=== PATIENT | male | born 1990 ===

== ENCOUNTER 2017-08-10 22:29 | Emergency (ER) | payer BC ==
[2017-08-10] MEDS ORDERED: methylPREDNISolone Sodium Succinate 125 MG/2 ML SDV IVPUSH ONE (22:31)
[2017-08-10] MEDS ORDERED: Albuterol/Ipratropium 3.0-0.5 MG/3 ML Neb Soln NEB ONE (22:31)
[2017-08-10] MEDS ORDERED: Sodium Chloride 0.9% 1,000 ML IV ONE (22:32)
--- NOTE | 2017-08-10 22:32 | EDM.PDOC ---
ED HPI GENERAL MEDICAL PROBLEM - General Chief Complaint: Respiratory Problem Stated Complaint: CHEST PAIN Time Seen by Provider: 08/10/17 22:32 Source of Information: Reports: Patient - History of Present Illness INITIAL COMMENTS - FREE TEXT/NARRATIVE: HISTORY AND PHYSICAL: History of present illness: [Patient presents with chest tightness and shortness breath has been intermittent over the last 2 weeks he is a smoker smoking 5 cigarettes per day denies any allergy history no new exposures On arrival he is in no distress is able to speak clearly indicates he does have somewhat of a sore throat he has diminished breath sounds on arrival no fever nausea vomiting chills sweats ] Review of systems: As per history of present illness and below otherwise all systems reviewed and negative. Past medical history: As per history of present illness and as reviewed below otherwise noncontributory. Surgical history: As per history of present illness and as reviewed below otherwise noncontributory. Social history: No reported history of drug or alcohol abuse. Family history: As per history of present illness and as reviewed below otherwise noncontributory. Physical exam: HEENT: Atraumatic, normocephalic, pupils reactive, negative for conjunctival pallor or scleral icterus, mucous membranes moist, throat clear, neck supple, nontender, trachea midline. Lungs: Clear to auscultation, breath sounds equal bilaterally, chest nontender. Post DuoNeb and Solu-Medrol Heart: S1S2, regular, negative for clicks, rubs, or JVD. Abdomen: Soft, nondistended, nontender. Negative for masses or hepatosplenomegaly. Negative for costovertebral tenderness. Pelvis: Stable nontender. Genitourinary: Deferred. Rectal: Deferred. Extremities: Atraumatic, negative for cords or calf pain. Neurovascular unremarkable. Neuro: Awake, alert, oriented. Cranial nerves II through XII unremarkable. Cerebellum unremarkable. Motor and sensory unremarkable throughout. Exam nonfocal. Diagnostics: [Chest 1 view EKG ] Therapeutics: [Liter normal saline bolus Solu-Medrol 125 mg IV DuoNeb Medrol Dosepak Z-López ] Impression: [ shortness of breath-resolved Bronchitis ] Definitive disposition and diagnosis as appropriate pending reevaluation and review of above. Left Chest Pain Score (Numeric/FACES): 2 - Related Data Allergies Allergy/AdvReac Type Severity Reaction Status Date / Time No Known Allergies Allergy Verified 08/10/17 23:03 Home Meds: Home Meds . [No Known Home Meds] 08/10/17 [History] ED ROS GENERAL - Review of Systems Review Of Systems: See Below ED EXAM, GENERAL - Physical Exam Exam: See Below Course - Vital Signs Last Recorded V/S: Last Vital Signs Temp 97 F 08/10/17 22:35 Pulse 74 08/10/17 23:38 Resp 16 08/10/17 22:35 BP 132/70 08/10/17 23:38 Pulse Ox 98 08/10/17 23:38 - Orders/Labs/Meds Orders: Active Orders 24 hr Category Date Time Status EKG Documentation Completion [RC] STAT Care 08/10/17 22:31 Active RT Aerosol Therapy [RC] ASDIRECTED Care 08/10/17 22:32 Active Chest 1V Frontal [CR] Stat Exams 08/10/17 22:31 Taken CULTURE STREP A CONFIRMATION [RM] Stat Lab 08/10/17 23:00 Results STREP SCRN A RAPID W CULT CONF [RM] Stat Lab 08/10/17 23:00 Ordered Labs: Laboratory Tests 08/10/17 08/10/17 Range/Units 23:00 23:00 WBC 7.50 (4.0-11.0) K/uL RBC 5.25 (4.50-5.90) M/uL Hgb 15.9 (13.0-17.0) g/dL Hct 43.6 (38.0-50.0) % MCV 83.0 (80.0-98.0) fL MCH 30.3 (27.0-32.0) pg MCHC 36.5 (31.0-37.0) g/dL RDW Std Deviation 36.8 (28.0-62.0) fl RDW Coeff of Aidee 12 (11.0-15.0) % Plt Count 196 (150-400) K/uL MPV 10.40 (7.40-12.00) fL Neut % (Auto) 45.1 L (48.0-80.0) % Lymph % (Auto) 46.5 H (16.0-40.0) % [place] % (Auto) 6.7 (0.0-15.0) % Eos % (Auto) 1.3 (0.0-7.0) % Baso % (Auto) 0.4 (0.0-1.5) % Neut # (Auto) 3.4 (1.4-5.7) K/uL Lymph # (Auto) 3.5 H (0.6-2.4) K/uL [place] # (Auto) 0.5 (0.0-0.8) K/uL Eos # (Auto) 0.1 (0.0-0.7) K/uL Baso # (Auto) 0.0 (0.0-0.1) K/uL Nucleated RBC % 0.0 /100WBC Nucleated RBCs # 0 K/uL Sodium 143 (136-148) mmol/L Potassium 3.3 L (3.5-5.1) mmol/L Chloride 106 (98-107) mmol/L Carbon Dioxide 27.0 (21.0-32.0) mmol/L BUN 17 (7.0-18.0) mg/dL Creatinine 1.1 (0.8-1.3) mg/dL Est Cr Clr Drug Dosing 115.20 mL/min Estimated GFR (MDRD) > 60.0 ml/min Glucose 119 H (74-106) mg/dL Calcium 8.2 L (8.5-10.1) mg/dL Total Bilirubin 0.4 (0.2-1.0) mg/dL AST 21 (15-37) IU/L ALT 32 (14-63) IU/L Alkaline Phosphatase 95 (46-116) U/L Troponin I < 0.050 (0.000-0.056) ng/mL Total Protein 7.0 (6.4-8.2) g/dL Albumin 3.7 (3.4-5.0) g/dL Globulin 3.3 (2.0-3.5) g/dL Albumin/Globulin Ratio 1.1 L (1.3-2.8) Meds: Medications Discontinued Medications Generic Name Dose Route Start Last Admin Trade Name Freq PRN Reason Stop Dose Admin Albuterol/Ipratropium 3 ml 08/10/17 22:31 08/10/17 22:54 Duoneb 3.0-0.5 Mg/3 Ml NEB 08/10/17 22:32 3 ml ONETIME ONE Administration Sodium Chloride 1,000 mls @ 999 mls/hr 08/10/17 22:32 08/10/17 23:05 Normal Saline IV 08/10/17 23:32 999 mls/hr STAT ONE Administration Methylprednisolone Sodium Succinate 125 mg 08/10/17 22:31 08/10/17 23:06 Solu-Medrol IVPUSH 08/10/17 22:32 125 mg ONETIME ONE Administration Departure - Departure Time of Disposition: 23:43 Disposition: Home, Self-Care 01 Condition: Good Clinical Impression: Bronchitis - Discharge Information Forms: ED Department Discharge Additional Instructions: The following information is given to patients seen in the emergency department who are being discharged to home. This information is to outline your options for follow-up care. We provide all patients seen in our emergency department with a follow-up referral. The need for follow-up, as well as the timing and circumstances, are variable depending upon the specifics of your emergency department visit. If you don't have a primary care physician on staff, we will provide you with a referral. We always advise you to contact your personal physician following an emergency department visit to inform them of the circumstance of the visit and for follow-up with them and/or the need for any referrals to a consulting specialist. The emergency department will also refer you to a specialist when appropriate. This referral assures that you have the opportunity for follow-up care with a specialist. All of these measure are taken in an effort to provide you with optimal care, which includes your follow-up. Under all circumstances we always encourage you to contact your private physician who remains a resource for coordinating your care. When calling for follow-up care, please make the office aware that this follow-up is from your recent emergency room visit. If for any reason you are refused follow-up, please contact the [facility] emergency department at and asked to speak to the emergency department charge nurse. - My Orders Last 24 Hours: My Active Orders 08/10/17 22:31 EKG Documentation Completion [RC] STAT Chest 1V Frontal [CR] Stat 08/10/17 22:32 RT Aerosol Therapy [RC] ASDIRECTED 08/10/17 23:00 CULTURE STREP A CONFIRMATION [RM] Stat STREP SCRN A RAPID W CULT CONF [RM] Stat - Assessment/Plan Last 24 Hours: My Active Orders 08/10/17 22:31 EKG Documentation Completion [RC] STAT Chest 1V Frontal [CR] Stat 08/10/17 22:32 RT Aerosol Therapy [RC] ASDIRECTED 08/10/17 23:00 CULTURE STREP A CONFIRMATION [RM] Stat STREP SCRN A RAPID W CULT CONF [RM] Stat
[2017-08-10 23:41] LABS: CHLORIDE,CL 106 mmol/L (98-107); SODIUM,NA 143 mmol/L (136-148)
--- NOTE | 2017-08-13 13:20 | CR ---
EXAM DATE: 08/10/17 PATIENT'S AGE: 27 Patient: DAPHNEY MANDUJANO Facility: [place], [place] Site . Site : [id number] Study: XRay Chest [id number] 11:23:33 PM Ordering Physician: Doctor Strong Final Report: Indication: Chest pain Technique: Chest 1 view Comparison: None Findings/Impression: Cardiovascular and mediastinum: Heart size and vasculature are normal in caliber and appearance. Mediastinum is within normal limits. Lungs and pleural space: Lungs are clear. No sign of infiltrate or mass. No sign of pleural effusion. No pneumothorax. Bones and soft tissues: No significant findings. Dictated by Faviola Leach MD @ Aug 10 2017 11:50PM (Electronic Signature) Report Signed by Proxy. CINDY
== END 2017-08-10 23:57 | disposition home or self-care (01) ==
LOC: MW.ED 22:29
DX: J40 Bronchitis, not specified as acute or chronic (principal); F17.210 Nicotine dependence, cigarettes, uncomplicated
CPT/HCPCS: 36415; 71045; 80053; 84484; 85025; 87081; 87880; 96361; 96374; 99285; J2930; J7040